=== PATIENT | male | born 1935 | race Caucasian/White ===

== ENCOUNTER 2016-09-30 10:10 | Day surgery (SDC) | payer MEDICARE ==
--- NOTE | 2016-09-23 16:11 | HP ---
HISTORY AND PHYSICAL: DATE OF ADMISSION: 09/30/2016. CHIEF COMPLAINT: Decreased vision. HISTORY OF PRESENT ILLNESS: This 81-year-old white male is scheduled with Dr. Adamson at the [facility] for a left cataract extraction under local anesthesia with monitored anesthesia care on September 30. The right eye will be done on 10/07/16. PAST MEDICAL HISTORY: The patient is under the care of Dr. Trevor Lewis. The patient has a history of asthma and hyperlipidemia. He has prostate cancer diagnosed in 2008, Sha score of 7. He had radiation therapy. No recurrence of disease. 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 In 2005, he had a normal 2 -D echocardiogram with an ejection fraction of 60%. Has vitamin B12 deficiency, but is not currently taking vitamin B12. PAST SURGICAL HISTORY: T and A in childhood. CURRENT MEDICATIONS: 1. Lipitor 10 mg daily. 2. Aspirin 81 mg daily. 3. Symbicort 160/4.5 two puffs b.i.d., which the patient uses on a p.r.n. basis. 4. Zyrtec 10 mg daily p.r.n. ALLERGIES: No known drug allergies. SOCIAL HISTORY: The patient lives with his in [facility] [place]. 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 Former smoker, quit in 1978, 12 pack year history. He does drink beer about 8 to 10 cans per week on average. REVIEW OF SYSTEMS: He does have some mild shortness of breath and occasional wheezing related to his asthma symptoms. He has occasional nocturia, intermittent left knee pain, and as previously mentioned has problems with vertigo labyrinthitis. He describes that if he is sitting and when he stands up , he starts to get a little dizzy and lightheaded, but once he is walking, he feels fine. He denies exertion related chest pain. PHYSICAL EXAMINATION GENERAL: An 81-year-old white male, who is alert, pleasant, and cooperative. VITAL SIGNS: Height 5 feet 9 inches, weight stable at 168. Blood pressure 114/ 60, pulse 60. HEENT: Eyes not examined. Ears normal. Mouth, tongue in the midline. Teeth in good repair. Pharynx is clear. NECK: Supple. Good range of motion. No adenopathy. Thyroid benign. LUNGS: Clear. Slight decreased breath sounds. No wheezing. HEART: Rhythm is regular. Apical pulse 60 beats per minute. EKG shows normal sinus rhythm within normal limits. ABDOMEN: Flat. Active bowel sounds. Abdomen is soft, nontender. No obvious masses or organomegaly. EXTREMITIES: The patient ambulates independently. No assisting aids. No edema , no cyanosis. No gross deformities. BACK: Normal curvature. No tenderness noted of the spine or CVA areas. SKIN: Good condition. No worrisome lesions noted. IMPRESSION: The patient is medically stable and cleared for his upcoming cataract surgery with Dr. Nikolas Adamson at the [facility]. SUZANNE ANTHONY NP CC: Dr. Trveor Lewis; Dr. Adamson in [facility]* [id number]/CPS #: [id number] MTDD
[~2016-09-30 10:10] MED LIST: Acetaminophen TAB* 325 MG PO PRN; Buffered Lidocaine 1% SYR 3ML* 3 ML/SYR SYRINGE INTRADERM ONE
[2016-09-30] MEDS ORDERED: Midazolam* 1 MG/ML 5 ML VIAL (5 MG) ONE (12:44)
[2016-09-30] MEDS ORDERED: KETAMINE HCL* 50 MG/ML 10 ML VIAL ONE (13:44)
[2016-09-30] MEDS ORDERED: Midazolam* 1 MG/ML 2 ML VIAL (2 MG) ONE (13:46)
[2016-09-30] MEDS ORDERED: Proparacaine 0.5% OPHTH.SOL* 15 ML BTL ONE (14:07)
[2016-09-30] MEDS ORDERED: Lidocaine 2% EPI 1:200000 MPF* 20 ML VIAL ONE (14:07)
[2016-09-30] MEDS ORDERED: Flurbiprofen 0.03% OPTH.SOL* 2.5 ML BTL ONE (14:07)
[2016-09-30] MEDS ORDERED: Povidone Iodine 5% OPTH* 30 ML BTL ONE (14:07)
[2016-09-30] MEDS ORDERED: Lidocaine 1% MPF* 2 ML VIAL ONE (14:07)
[2016-09-30] MEDS ORDERED: Neomycin/Polymy/Dex OPTH.SUSP* MAXITROL 0.1% 5 ML ONE (14:07)
[2016-09-30] MEDS ORDERED: Cyclopentolate 1% OPTH.SOL* 2 ML BTL ONE (14:07)
[2016-09-30] MEDS ORDERED: acetaZOLAMIDE TAB* 250 MG ONE (14:07)
[2016-09-30] MEDS ORDERED: Phenylephrine 2.5% OPTH.SOL* 2 ML BTL ONE (14:07)
[2016-09-30 14:18] VITALS: BP 163/81
--- NOTE | 2016-09-30 22:17 | OP ---
DATE OF OPERATION: 09/30/16 - [facility] DATE OF : 35 SURGEON: Nikolas Adamson M.D. PREOPERATIVE DIAGNOSIS: Cataract left eye. POSTOPERATIVE DIAGNOSIS: Cataract left eye. OPERATIVE PROCEDURE: Phacoemulsification chante eye with IOL. DESCRIPTION OF PROCEDURE: The patient was brought to the operating room after being given 1/2% Alcaine with epinephrine drops in the preoperative area. The eye was prepped and draped in the usual sterile fashion. Sterile drape and eyelid speculum were placed. Again, topical 1/2% Alcaine with epinephrine was given. A paracentesis incision was made at the 3 o'clock position with the No.75 blade. Clear cornea incision 2.2 x 2.2-mm was created at the 6 o'clock position starting at the anterior limbus using the 2.2-mm keratome. The anterior chamber was irrigated with 0.4 mL of 1% non-preservative intracameral lidocaine and filled with DisCoVisc. A capsulorrhexis was completed using the cystotome and the Utrata forceps. Hydrodissection was performed with balanced salt solution. The lens nucleus was removed with the Phacoemulsification handpiece without incident. Cortex was removed with the irrigation-aspiration handpiece. The capsular bag was re-inflated using DisCoVisc and an SN60WF 24.5 implant was inserted with the shooter. The pupil was 3 mm prior to capsulorrhexis. A Malyugin ring was used to dilate the pupil prior to capsulorrhexis and removed after the insertion of the lens. The irrigation- aspiration handpiece was used to remove all residual DisCoVisc. The eye was refilled with balanced salt solution and the wound checked and found to be watertight. Topical Maxitrol drops were given. Indication for complex cataract surgery: Iris abnormalities requiring pupil dilation device. [id number]/CPS #: [id number] [facility]
== END 2016-09-30 14:40 | disposition home or self-care (01) ==
LOC: OREAST 10:10
PROVIDERS: ATTEND Specialist
DX: H25.812 Combined forms of age-related cataract, left eye (principal); Q13.2 Other congenital malformations of iris; H40.033 Anatomical narrow angle, bilateral; H43.813 Vitreous degeneration, bilateral; H50.22 Vertical strabismus, left eye; J45.909 Unspecified asthma, uncomplicated; E78.5 Hyperlipidemia, unspecified; Z85.46 Personal history of malignant neoplasm of prostate; J44.9 Chronic obstructive pulmonary disease, unspecified; Z87.891 Personal history of nicotine dependence
CPT/HCPCS: A9270-GY; J2250; V2632

== ENCOUNTER 2016-10-07 07:20 | Day surgery (SDC) | payer MEDICARE ==
[2016-10-07] MEDS ORDERED: acetaZOLAMIDE TAB* 250 MG ONE (08:15)
[2016-10-07] MEDS ORDERED: Proparacaine 0.5% OPHTH.SOL* 15 ML BTL ONE (08:15)
[2016-10-07] MEDS ORDERED: Neomycin/Polymy/Dex OPTH.SUSP* MAXITROL 0.1% 5 ML ONE (08:15)
[2016-10-07] MEDS ORDERED: Flurbiprofen 0.03% OPTH.SOL* 2.5 ML BTL ONE (08:15)
[2016-10-07] MEDS ORDERED: Lidocaine 1% MPF* 2 ML VIAL ONE (08:15)
[2016-10-07] MEDS ORDERED: Phenylephrine 2.5% OPTH.SOL* 2 ML BTL ONE (08:15)
[2016-10-07] MEDS ORDERED: Lidocaine 2% EPI 1:200000 MPF* 20 ML VIAL ONE (08:15)
[2016-10-07] MEDS ORDERED: Cyclopentolate 1% OPTH.SOL* 2 ML BTL ONE (08:15)
[2016-10-07] MEDS ORDERED: Povidone Iodine 5% OPTH* 30 ML BTL ONE (08:15)
[2016-10-07] MEDS ORDERED: fentaNYL* 50 MCG/ML 2 ML VIAL (100 MCG VIAL) ONE ×2 (09:21→09:36)
[2016-10-07 10:11] VITALS: BP 140/66
--- NOTE | 2016-10-07 13:09 | OP ---
OPERATIVE NOTE: DATE OF OPERATION: 10/07/16 DATE OF : 35 SURGEON: Nikolas Adamson M.D. PREOPERATIVE DIAGNOSIS: Cataract, right eye. POSTOPERATIVE DIAGNOSIS: Cataract, right eye. OPERATIVE PROCEDURE: Phacoemulsification, right eye with IOL. PROCEDURE: The patient was brought to the operating room after being given 1/2% Alcaine with epinep hrine drops in the preoperative area. The eye was prepped and draped in the usual sterile fashion. Sterile drape and eyelid speculum were placed. Again, topical 1/2% Alcaine with epinephrine was gi marcel. A paracentesis incision was made at the 9 o'clock position with the No.75 blade. Clear cornea incision 2.2 x 2.2-mm was created at the 12 o'clock position starting at the anterior limbus using the 2.2-mm keratome. The anterior chamber was irrigated with 0.4 mL of 1% non-preservative intracam eral lidocaine and filled with DisCoVisc. A capsulorrhexis was completed using the cystotome and th e Utrata forceps. Hydrodissection was performed with balanced salt solution. The lens nucleus was r emoved with the Phacoemulsification handpiece without incident. Cortex was removed with the irrigat ion-aspiration handpiece. The capsular bag was re-inflated using DisCoVisc and an SN60WF 24-diopter implant was inserted with the shooter. Malyugin ring was used to dilate the pupil prior to capsulor rhexis because the pupil was only 3 mm. This was removed after insertion of the lens. Indication f or complex cataract surgery, pupillary abnormalities requiring Malyugin ring dilation. The irrigatio n-aspiration handpiece was used to remove all residual DisCoVisc. The eye was refilled with balance d salt solution and the wound checked and found to be watertight. Topical Maxitrol drops were given . [id number]/[facility] #: [id number]
== END 2016-10-07 10:18 | disposition home or self-care (01) ==
LOC: OREAST 07:20
PROVIDERS: ATTEND Specialist
DX: H25.811 Combined forms of age-related cataract, right eye (principal); H40.033 Anatomical narrow angle, bilateral; H43.813 Vitreous degeneration, bilateral; H50.22 Vertical strabismus, left eye; Z87.891 Personal history of nicotine dependence; J44.9 Chronic obstructive pulmonary disease, unspecified
CPT/HCPCS: A9270-GY; J3010; V2632

== ENCOUNTER 2017-01-27 15:35 | Emergency (ER) | payer MEDICARE ==
[2017-01-27 15:43] VITALS: BP 131/97
--- NOTE | 2017-01-27 16:36 | UC ---
Respiratory Complaint HPI - HPI Summary HPI Summary: Patient presents to the with CC of cough x 1 month. He notes to production with white phlegm. Not worse with day or night. Not worse with recumbent position. Patient has tried Symbicort without relief of symptoms. He states he has had this before, but has never lasted this long. He does not recall being on any antibiotics in the past, and usually these symptoms have spontaneously improved. He is a former smoker. Quit 40 years ago. Hx of prostate CA. Has not tried a cough medication. Generally healthy. He denies fevers, sweats or chills. Notable SOB after long distances. - History of Current Complaint Hx Obtained From: Patient Onset/Duration: Gradual Onset Timing: Constant Severity Initially: Moderate Severity Currently: Moderate Pain Intensity: 2 Pain Scale Used: 0-10 Numeric Character: Cough: Productive Aggravating Factors: Nothing Alleviating Factors: Nothing Associated Signs And Symptoms: Positive: Dyspnea - Risk Factors Pulmonary Embolism Risk Factors: Negative Cardiac Risk Factors: Negative Pseudomonas Risk Factors: Chronic Lung Disease Tuberculosis Risk Factors: Negative <Maegan Mast - Last Filed: 01/27/17 21:44> <Radha Hopkins - Last Filed: 01/27/17 21:47> - History of Current Complaint Chief Complaint: UCRespiratory Stated Complaint: RESP COMPLAINT Time Seen by Provider: 01/27/17 16:28 - Allergies/Home Medications Allergies/Adverse Reactions: Allergies Allergy/AdvReac Type Severity Reaction Status Date / Time No Known Allergies Allergy Verified 01/27/17 15:43 PMH/Surg Hx/FS Hx/Imm Hx Previously Healthy: Yes - Surgical History Surgical History: Yes Surgery Procedure, Year, and Place: T & A; lower back injections 1978 in [place] , 1998 REVERE PROSTATE SEED IMPLANT, APPENDECTOMY, - Family History Known Family History: Positive: None - Social History Occupation: Unemployed Lives: With Family Alcohol Use: Daily Alcohol Amount: beer Substance Use Type: None Smoking Status (MU): Former Smoker Amount Used/How Often: < 1 PPDX 25 YRS Have You Smoked in the Last Year: No When Did the Patient Quit Smoking/Using Tobacco: quit 1978 - Immunization History Most Recent Influenza Vaccination: 2014 Most Recent Tetanus Shot: UTD Most Recent Pneumonia Vaccination: 2004 <Maegan Mast - Last Filed: 01/27/17 21:44> Review of Systems Constitutional: Negative Skin: Negative ENT: Negative Respiratory: Shortness Of Breath, Cough Cardiovascular: Negative Genitourinary: Frequency Motor: Negative Neurovascular: Negative Neurological: Negative Psychological: Negative All Other Systems Reviewed And Are Negative: Yes <Maegan Mast - Last Filed: 01/27/17 21:44> Physical Exam Triage Information Reviewed: Yes Appearance: Well-Appearing, No Pain Distress, Well-Nourished Vital Signs: Initial Vital Signs Temp 98.9 F 01/27/17 15:38 Pulse 75 01/27/17 15:38 Resp 18 01/27/17 15:38 BP 131/97 01/27/17 15:38 Pulse Ox 98 01/27/17 15:38 Vital Signs Reviewed: Yes Eye Exam: Normal Eyes: Positive: Conjunctiva Clear ENT Exam: Normal Neck exam: Normal Neck: Positive: No Lymphadenopathy Respiratory Exam: Normal Respiratory: Positive: Chest non-tender, Lungs clear Cardiovascular Exam: Normal Cardiovascular: Positive: RRR Musculoskeletal Exam: Normal Musculoskeletal: Positive: Strength Intact Neurological Exam: Normal Neurological: Positive: Alert Psychological: Positive: Normal Response To Family, Age Appropriate Behavior Skin Exam: Normal <Maegan Mast - Last Filed: 01/27/17 21:44> Vital Signs: Initial Vital Signs Temp 98.9 F 01/27/17 15:38 Pulse 75 01/27/17 15:38 Resp 18 01/27/17 15:38 BP 131/97 01/27/17 15:38 Pulse Ox 98 01/27/17 15:38 <Radha Hopkins - Last Filed: 01/27/17 21:47> UC Diagnostic Evaluation - Laboratory O2 Sat by Pulse Oximetry: 98 <Maegan Mast - Last Filed: 01/27/17 21:44> Respiratory Course/Dx - Course Course Of Treatment: Patient evaluated for cough x 1 month. Notable SOB. Chest xray shows no acute findings. Discussed case with Dr. Hopkins. Will treat with doxycycline based on PE findings, tessalon and Mucinex. He is encouraged to follow up with Dr. Gillespie this week. - Differential Dx/Diagnosis Differential Diagnosis/HQI/PQRI: Bronchitis, Exacerbation Of COPD, Lower Resp Infection Provider Diagnoses: Acute Cough <Maegan Mast - Last Filed: 01/27/17 21:44> Discharge <Maegan Mast - Last Filed: 01/27/17 21:44> <Radha Hopkins - Last Filed: 01/27/17 21:47> - Discharge Plan Condition: Stable Disposition: HOME Prescriptions: Benzonatate CAP* [Tessalon CAP*] 100 mg PO TID #21 cap DOXYcycline CAP(*) [DOXYcycline 100MG CAP(*)] 100 mg PO BID #10 cap Guaifenesin/Pseudo 600/60(NF) [Mucinex D 600/60 (NF)] 1 tab PO Q12H #16 tab Patient Education Materials: Benzonatate (By mouth), Doxycycline (By mouth), Chronic Cough (ED) Referrals: Marito Gillespie MD [Primary Care Provider] - 1 Week (persistent cough. ) Additional Instructions: Drink plenty of fluids Humidifier in the home will help Follow up with Dr. Gillespie as soon as possible Attestations User Type: Provider - I was available for consult. This patient was seen by the [facility]. The patient was not presented to, seen by, or examined by me. -Ivan <Radha Hopkins - Last Filed: 01/27/17 21:47>
--- NOTE | 2017-01-27 17:04 | RAD ---
INDICATION: Chronic shortness of breath. 4 weeks productive cough. Former tobacco use. COMPARISON: August 25, 2015 TECHNIQUE: Dual energy PA and routine lateral views of the chest were obtained. REPORT: Elevated lung volumes and both diffuse mild prominence of the interstitial markings and patchy rarefaction of the mid to upper lung zone interstitial markings. No focal pulmonary lesion, compelling alveolar consolidation, pleural effusion, pneumothorax. The heart, pulmonary vasculature, and mediastinal contours are unremarkable. Unremarkable soft tissue contours and osseous structures for age. 3 small linear metallic foreign bodies are identified at the LEFT posterior thorax localizing in the lung parenchyma on August 13, 2014 CT. IMPRESSION: Stigmata of obstructive lung disease. No acute pulmonary or cardiac process evident.
== END 2017-01-27 17:29 | disposition home or self-care (01) ==
LOC: UCEAST 15:35
DX: R05 Cough (principal); Z87.891 Personal history of nicotine dependence
CPT/HCPCS: 71020; 99212; G0463

== ENCOUNTER 2017-05-04 10:12 | Inpatient (IN) | payer MEDICARE ==
[2017-05-04] MEDS ORDERED: NS 0.9% 1000 ML* 1,000 ML IV SCH (10:45)
--- NOTE | 2017-05-04 11:05 | RAD ---
HISTORY: Right-sided weakness, blurred vision COMPARISONS: August 29, 2014 TECHNIQUE: Multiple contiguous axial CT scans were obtained of the head without intravenous contrast. FINDINGS: HEMORRHAGE/INFARCT: There is no hemorrhage or acute infarct. MASSES/SHIFT: There is no mass or shift. EXTRA-AXIAL SPACES: There are no extra-axial fluid collections. SULCI AND VENTRICLES: The sulci and ventricles are normal in size and position for the patient's stated age. CEREBRUM: There is hypoattenuation of the periventricular and subcortical white matter. BRAINSTEM: There are no focal parenchymal abnormalities. CEREBELLUM: There are no focal parenchymal abnormalities. VESSELS: The vessels are grossly normal. PARANASAL SINUSES: The paranasal sinuses are clear. ORBITS: The orbits are unremarkable. BONES AND SOFT TISSUE: No bone or soft tissue abnormalities are noted. OTHER: None IMPRESSION: NO ACUTE INTRACRANIAL PATHOLOGY.
[2017-05-04 11:17] LABS: Comments Flag Yes; Hematocrit 38 % (42-52); Mean Corpuscular HGB Conc 37 g/dl (31-36); Mean Corpuscular Hemoglobin 33 pg (27-31); Mean Corpuscular Volume 90 fL (80-94); Mean Platelet Volume 7 um3 (7.4-10.4); Red Blood Count 4.27 10^6/ul (4.0-5.4); Red Cell Distribution Width 15 % (10.5-15); White Blood Count 7.3 10^3/ul (3.5-10.8)
--- NOTE | 2017-05-04 11:24 | RAD ---
INDICATION: Right-sided weakness COMPARISON: January 27, 2017 TECHNIQUE: An AP portable view obtained at 1110 hours is submitted. FINDINGS: Bones/Soft Tissues: There are no acute bony findings. Cardiomediastinal: The cardiomediastinal silhouette is normal. Lungs: There are no infiltrates. There is hyperinflation. There is nipple shadow on the right Pleura: There are no pleural effusions. Other: None IMPRESSION: NO ACTIVE DISEASE.
[2017-05-04 11:35] LABS: ALT 13 U/L (7-52); AST 15 U/L (13-39); Albumin 4.1 g/dL (3.2-5.2); Alkaline Phosphatase 64 U/L (34-104); Ammonia 35 mol/L (16-53); Anion Gap 6 mmol/L (2-11); BUN/Creatinine Ratio 17.3 (8-20); Blood Urea Nitrogen 32 mg/dL (6-24); C Reactive Protein < 1.00 mg/L (< 5.00); CO2 Carbon Dioxide 27 mmol/L (22-32); Calcium 9.4 mg/dL (8.6-10.3); Chloride 108 mmol/L (101-111); Creatine Kinase 41 U/L (10-223); EGFR African American 45.3 (>60); EGFR Non-African American 35.3 (>60); Globulin 2.4 g/dL (2-4); Glucose 99 mg/dL (70-100); Lipase 12 U/L (11.0-82.0); Magnesium 2.2 mg/dL (1.9-2.7); Potassium 4.7 mmol/L (3.5-5.0); Sodium 141 mmol/L (133-145); Total Protein 6.5 g/dL (6.4-8.9)
[2017-05-04 11:37] LABS: Troponin I 0.02 ng/mL (<0.04)
[2017-05-04] MEDS ORDERED: Iodixanol* (CONTRAST) 320 MG/ML 100 ML SDV IV ONE (11:38)
[2017-05-04 11:39] LABS: B Type Natriuretic Peptide 76 pg/mL
[2017-05-04] MEDS ORDERED: Aspirin TAB* 325 MG PO ONE (11:51)
[2017-05-04 12:13] LABS: TSH (Thyroid Stimulating Horm) 4.75 mcIU/mL (0.34-5.60)
--- NOTE | 2017-05-04 12:44 | RAD ---
HISTORY: Right face and arm weakness, slurred speech COMPARISONS: Head CT dated May 04, 2017, carotid ultrasound dated August 29, 2014 TECHNIQUE: Multiple contiguous axial CT scans were obtained of the head and neck After the administration of nonionic intravenous contrast timed to the systemic arterial phase of contrast enhancement. Coronal and sagittal multiplanar reformations are submitted for review. Multiple 3-D maximum intensity projection reconstructions are also submitted for review. FINDINGS: CTA NECK: AORTIC ARCH: There is a normal three-vessel branching pattern of the aortic arch. There is no ostial or proximal stenosis of the cephalic great vessels. RIGHT VERTEBRAL ARTERY: The right vertebral artery is patent along its course, without stenosis. LEFT VERTEBRAL ARTERY: There is atherosclerotic plaque at origin of left subclavian artery with diffuse hypoenhancement of the left vertebral artery. DOMINANCE: The right vertebral artery is dominant. RIGHT COMMON CAROTID ARTERY: The right common carotid artery is patent. The right carotid bifurcation occurs at C4-C5 RIGHT INTERNAL CAROTID ARTERY: There is atheromatous disease of the right carotid bifurcation, without right internal carotid artery stenosis by NASCET criteria. RIGHT EXTERNAL CAROTID ARTERY: The right external carotid artery is unremarkable. LEFT COMMON CAROTID ARTERY: The left common carotid artery is patent. The left carotid bifurcation occurs at C4-C5 LEFT INTERNAL CAROTID ARTERY: There is atheromatous plaque of the left carotid bifurcation, with approximately 30% short segment left internal carotid artery stenosis by NASCET criteria. LEFT EXTERNAL CAROTID ARTERY: The left external carotid artery is unremarkable. VENOUS CIRCULATION: The venous system is unremarkable. SALIVARY GLANDS: The parotid glands, submandibular glands, sublingual glands are normal. NASAL CAVITY/NASOPHARYNX: The nasal cavity and nasopharynx are normal. ORAL CAVITY/OROPHARYNX: The oral cavity is obscured by streak artifact from dental amalgam. The visualized oral cavity and oropharynx are unremarkable. LARYNGEAL APPARATUS/HYPOPHARYNX: The laryngeal apparatus and hypopharynx are normal. UPPER AIRWAY/UPPER ESOPHAGUS: The visualized upper airway and esophagus are normal. LUNG APICES: The lung apices are clear. THYROID GLAND: The thyroid gland is normal. LYMPH NODES: There is no lymphadenopathy by size criteria. BONES AND SOFT TISSUES: Degenerative changes are noted along the spine. CTA HEAD: INTRACRANIAL CIRCULATION: As noted above, there is hypoenhancement of the distal left vertebral artery. Elsewhere, there is no aneurysm, vascular malformation, occlusion, or stenosis of the visualized intravenous circulation. The anterior communicating artery complex is clear. Bilateral posterior communicating arteries are identified. VENOUS CIRCULATION: The venous system is unremarkable. PERFUSION: There is no obvious parenchymal perfusion deficit. HEMORRHAGE/INFARCT: There is no hemorrhage or acute infarct. MASSES/SHIFT: There is no mass or shift. EXTRA-AXIAL SPACES: There are no extra-axial fluid collections. SULCI AND VENTRICLES: The sulci and ventricles are normal in size and position for the patient's stated age. CEREBRUM: There is hypoattenuation of the periventricular and subcortical white matter. BRAINSTEM: There are no focal parenchymal abnormalities. CEREBELLUM: There are no focal parenchymal abnormalities. PARANASAL SINUSES: The paranasal sinuses are clear. ORBITS: The orbits are unremarkable. BONES AND SOFT TISSUE: No bone or soft tissue abnormalities are noted. OTHER: There is no abnormal enhancement. IMPRESSION: 1. ATHEROMATOUS DISEASE. 2. APPROXIMATELY 30% LEFT INTERNAL CAROTID ARTERY STENOSIS BY NASCET CRITERIA. 3. THERE IS DIFFUSE HYPOENHANCEMENT WITH MULTIFOCAL NARROWING OF THE LEFT VERTEBRAL ARTERY WITH ATHEROMATOUS PLAQUE OF THE PROXIMAL LEFT SUBCLAVIAN ARTERY. THE APPEARANCE IS SUGGESTIVE OF MULTIFOCAL STENOSIS OF THE LEFT VERTEBRAL ARTERY VERSUS HIGH-GRADE OSTIAL STENOSIS OF THE LEFT VERTEBRAL ARTERY. 4. ELSEWHERE, THERE IS NO ANEURYSM, VASCULAR DEFINITION, OCCLUSION, OR STENOSIS OF THE INTRACRANIAL CIRCULATION. CPT II Codes: 3100F
[2017-05-04 14:12] LABS: Urine Bilirubin Negative (Negative); Urine Glucose Negative (Negative); Urine Nitrite Negative (Negative)
[2017-05-04] MEDS ORDERED: Clopidogrel TAB* 75 MG PO ONE (15:23)
[2017-05-04] MEDS: NS 0.9% 1000 ML* 1,000 ML IV SCH (17:06)
[2017-05-04] MEDS: Atorvastatin* 10 MG TAB PO SCH (17:06)
--- NOTE | 2017-05-04 18:36 | ED ---
Neto Middleton Benjamin, scribed for Dov Bundy MD on 05/04/17 at 1032 . Neurological HPI - HPI Summary HPI Summary: 81yo male c/o waking this morning with trouble walking and altered depth perception. Pt denies any weakness or numbness. Pt states that he notices a slight slurred speech. Pt feels less sensation on the right face and states his RUE feels slightly off. - History of Current Complaint Chief Complaint: EDNeurologicalDeficit Stated Complaint: POSSIBLE STROKE Hx Obtained From: Patient, Family/Insurance Premium Auditor - Onset/Duration: Sudden Onset, Still Present Timing: Constant Onset Severity: Mild Current Severity: Mild Neurological Deficit Location: Facial - right, RUE Pain Intensity: 0 Character: Paresthesia - RUE, Impaired Speech, Visual Changes Aggravating: Nothing Alleviating: Nothing - Allergy/Home Medications Allergies/Adverse Reactions: Allergies Allergy/AdvReac Type Severity Reaction Status Date / Time No Known Allergies Allergy Verified 05/04/17 10:15 Home Medications: Home Medications Aspirin EC Low Dose* [Ecotrin EC Low Dose 81 MG*] 81 mg PO DAILY 05/04/17 [ History Confirmed 05/04/17] PMH/Surg Hx/FS Hx/Imm Hx Endocrine/Hematology History: Denies: Hx Diabetes, Hx Thyroid Disease Cardiovascular History: Reports: Hx Hypercholesterolemia Denies: Hx Hypertension, Hx Pacemaker/ICD Respiratory History: Reports: Hx Asthma, Hx Chronic Bronchitis, Hx Chronic Obstructive Pulmonary Disease (COPD) - MAYBE ? GI History: Denies: Hx Ulcer Musculoskeletal History: Reports: Hx Arthritis - LEFT KNEE, Other Musculoskeletal History - PAIN INJECTIONS IN 1978-NO PROBLEMS SINCE Sensory History: Reports: Hx Cataracts - BILATERAL, Hx Contacts or Glasses - GLASSES Denies: Hx Hearing Aid Opthamlomology History: Reports: Hx Cataracts - BILATERAL, Hx Contacts or Glasses - GLASSES Neurological History: Reports: Hx Headaches - A CHILD, Other Neuro Impairments/Disorders - HX OF VERTIGO-2014 Psychiatric History: Denies: Hx Panic Disorder - Cancer History Cancer Type, Location and Year: Prostate Hx Radiation Therapy: Yes - Surgical History Surgery Procedure, Year, and Place: T & A; lower back injections 1978 in [place] , 1998 [employer] PROSTATE SEED IMPLANT, APPENDECTOMY, Hx Anesthesia Reactions: No Infectious Disease History: No Infectious Disease History: Reports: Hx Shingles Denies: Hx Clostridium Difficile, Hx Hepatitis, Hx Human Immunodeficiency Virus (HIV), Hx of Known/Suspected MRSA, Hx Tuberculosis, Hx Known/Suspected VRE , Hx Known/Suspected VRSA, History Other Infectious Disease, Traveled Outside the [place] in Last 30 Days - Family History Known Family History: Negative: Renal Disease, Respiratory Disease - Social History Alcohol Use: Daily Alcohol Amount: beer Substance Use Type: Reports: None Smoking Status (MU): Former Smoker Amount Used/How Often: < 1 PPDX 25 YRS Have You Smoked in the Last Year: No Review of Systems Constitutional: Negative ENT: Negative Cardiovascular: Negative Respiratory: Negative Gastrointestinal: Negative Musculoskeletal: Negative Skin: Negative Neurological: Other - altered depth perception; trouble walking Positive: Paresthesia - RUE feels "off", Slurred Speech. Negative: Weakness, Numbness Psychological: Normal All Other Systems Reviewed And Are Negative: Yes Physical Exam - Summary Physical Exam Summary: General: well-appearing, no pain distress Skin: warm, color reflects adequate perfusion, dry Head: normal Eyes: EOMI, MOOKIE ENT: normal Neck: supple, nontender Respiratory: CTA, breath sounds present Cardiovascular: RRR Abdomen: soft, nontender Bowel: present Musculoskeletal: normal, strength/ROM intact Neurological: normal, sensory/motor intact, A&O x3. RUE drift. Right facial droop. Psychological: affect/mood appropriate Triage Information Reviewed: Yes Vital Signs On Initial Exam: Initial Vitals Temp Pulse Resp BP Pulse Ox 97.3 F 71 16 144/72 100 05/04/17 10:15 05/04/17 10:15 05/04/17 10:15 05/04/17 10:15 05/04/17 10:15 Vital Signs Reviewed: Yes Diagnostics - Vital Signs Vital Signs Temp Pulse Resp BP Pulse Ox 05/04/17 10:15 97.3 F 71 16 144/72 100 - Laboratory Lab Results: Lab Results 05/04/17 05/04/17 05/04/17 Range/Units 11:05 11:05 11:05 WBC (3.5-10.8) 10^3/ul RBC (4.0-5.4) 10^6/ul Hgb (14.0-18.0) g/dl Hct (42-52) % MCV (80-94) fL MCH (27-31) pg MCHC (31-36) g/dl RDW (10.5-15) % Plt Count (150-450) 10^3/ul MPV (7.4-10.4) um3 Neut % (Auto) (38-83) % Lymph % (Auto) (25-47) % Fleming % (Auto) (1-9) % Eos % (Auto) (0-6) % Baso % (Auto) (0-2) % Absolute Neuts (auto) (1.5-7.7) 10^3/ul Absolute Lymphs (auto) (1.0-4.8) 10^3/ul Absolute Monos (auto) (0-0.8) 10^3/ul Absolute Eos (auto) (0-0.6) 10^3/ul Absolute Basos (auto) (0-0.2) 10^3/ul Absolute Nucleated RBC 10^3/ul Nucleated RBC % INR (Anticoag Therapy) 0.90 (0.77-1.02) APTT 29.8 (26.0-36.3) seconds Sodium 141 (133-145) mmol/L Potassium 4.7 (3.5-5.0) mmol/L Chloride 108 (101-111) mmol/L Carbon Dioxide 27 (22-32) mmol/L Anion Gap 6 (2-11) mmol/L BUN 32 H (6-24) mg/dL Creatinine 1.85 H (0.67-1.17) mg/dL Est GFR ( Amer) 45.3 (>60) Est GFR (Non-Af Amer) 35.3 (>60) BUN/Creatinine Ratio 17.3 (8-20) Glucose 99 (70-100) mg/dL Lactic Acid (0.5-2.0) mmol/L Calcium 9.4 (8.6-10.3) mg/dL Magnesium 2.2 (1.9-2.7) mg/dL Total Bilirubin 0.80 (0.2-1.0) mg/dL AST 15 (13-39) U/L ALT 13 (7-52) U/L Alkaline Phosphatase 64 (34-104) U/L Ammonia 35 (16-53) mol/L Total Creatine Kinase 41 (10-223) U/L CK-MB (CK-2) 1.8 (0.6-6.3) ng/mL Troponin I 0.02 (<0.04) ng/mL C-Reactive Protein < 1.00 (< 5.00) mg/L B-Natriuretic Peptide 76 ( - 100) pg/mL Total Protein 6.5 (6.4-8.9) g/dL Albumin 4.1 (3.2-5.2) g/dL Globulin 2.4 (2-4) g/dL Albumin/Globulin Ratio 1.7 (1-3) Lipase 12 (11.0-82.0) U/L TSH 4.75 (0.34-5.60) mcIU/mL Urine Color Urine Appearance Urine pH (5-9) Ur Specific [place] (1.010-1.030) Urine Protein (Negative) Urine Ketones (Negative) Urine Blood (Negative) Urine Nitrate (Negative) Urine Bilirubin (Negative) Urine Urobilinogen (Negative) Ur Leukocyte Esterase (Negative) Urine Glucose (Negative) 05/04/17 05/04/17 05/04/17 Range/Units 11:05 11:05 13:49 WBC 7.3 (3.5-10.8) 10^3/ul RBC 4.27 (4.0-5.4) 10^6/ul Hgb 14.0 (14.0-18.0) g/dl Hct 38 L (42-52) % MCV 90 (80-94) fL MCH 33 H (27-31) pg MCHC 37 H (31-36) g/dl RDW 15 (10.5-15) % Plt Count 183 (150-450) 10^3/ul MPV 7 L (7.4-10.4) um3 Neut % (Auto) 60.9 (38-83) % Lymph % (Auto) 14.8 L (25-47) % Fleming % (Auto) 8.8 (1-9) % Eos % (Auto) 14.6 H (0-6) % Baso % (Auto) 0.9 (0-2) % Absolute Neuts (auto) 4.5 (1.5-7.7) 10^3/ul Absolute Lymphs (auto) 1.1 (1.0-4.8) 10^3/ul Absolute Monos (auto) 0.6 (0-0.8) 10^3/ul Absolute Eos (auto) 1.1 H (0-0.6) 10^3/ul Absolute Basos (auto) 0.1 (0-0.2) 10^3/ul Absolute Nucleated RBC 0 10^3/ul Nucleated RBC % 0 INR (Anticoag Therapy) (0.77-1.02) APTT (26.0-36.3) seconds Sodium (133-145) mmol/L Potassium (3.5-5.0) mmol/L Chloride (101-111) mmol/L Carbon Dioxide (22-32) mmol/L Anion Gap (2-11) mmol/L BUN (6-24) mg/dL Creatinine (0.67-1.17) mg/dL Est GFR ( Amer) (>60) Est GFR (Non-Af Amer) (>60) BUN/Creatinine Ratio (8-20) Glucose (70-100) mg/dL Lactic Acid 0.6 (0.5-2.0) mmol/L Calcium (8.6-10.3) mg/dL Magnesium (1.9-2.7) mg/dL Total Bilirubin (0.2-1.0) mg/dL AST (13-39) U/L ALT (7-52) U/L Alkaline Phosphatase (34-104) U/L Ammonia (16-53) mol/L Total Creatine Kinase (10-223) U/L CK-MB (CK-2) (0.6-6.3) ng/mL Troponin I (<0.04) ng/mL C-Reactive Protein (< 5.00) mg/L B-Natriuretic Peptide ( - 100) pg/mL Total Protein (6.4-8.9) g/dL Albumin (3.2-5.2) g/dL Globulin (2-4) g/dL Albumin/Globulin Ratio (1-3) Lipase (11.0-82.0) U/L TSH (0.34-5.60) mcIU/mL Urine Color Yellow Urine Appearance Clear Urine pH 6.0 (5-9) Ur Specific [place] 1.031 H (1.010-1.030) Urine Protein Negative (Negative) Urine Ketones Negative (Negative) Urine Blood Negative (Negative) Urine Nitrate Negative (Negative) Urine Bilirubin Negative (Negative) Urine Urobilinogen Negative (Negative) Ur Leukocyte Esterase Negative (Negative) Urine Glucose Negative (Negative) Result Diagrams: 05/04/17 11:05 05/04/17 11:05 Lab Statement: Any lab studies that have been ordered have been reviewed, and results considered in the medical decision making process. - Radiology CXR Xray Interpretation: No Acute Changes Radiology Interpretation Completed By: Radiologist - ED physician has reviewed this radiology report and agrees. - CT Brain CT CT Interpretation: No Acute Changes CT Interpretation Completed By: Radiologist - ED physician has reviewed this radiology report and agrees. CTA Head CT Interpretation: Positive (See Comments) - IMPRESSION: 1. ATHEROMATOUS DISEASE. 2. APPROXIMATELY 30% LEFT INTERNAL CAROTID ARTERY STENOSIS BY NASCET CRITERIA. 3. THERE IS DIFFUSE HYPOENHANCEMENT WITH MULTIFOCAL NARROWING OF THE LEFT VERTEBRAL ARTERY WITH ATHEROMATOUS PLAQUE OF THE PROXIMAL LEFT SUBCLAVIAN ARTERY. THE APPEARANCE IS SUGGESTIVE OF MULTIFOCAL STENOSIS OF THE LEFT VERTEBRAL ARTERY VERSUS HIGH-GRADE OSTIAL STENOSIS OF THE LEFT VERTEBRAL ARTERY. 4. ELSEWHERE, THERE IS NO ANEURYSM, VASCULAR DEFINITION, OCCLUSION, OR STENOSIS OF THE INTRACRANIAL CIRCULATION. CT Interpretation Completed By: Radiologist - ED physician has reviewed this radiology report and agrees. - EKG 1134. Cardiac Rate: Bradycardia EKG Rhythm: Sinus Bradycardia - 49bpm ST Segment: Normal NIH Scale - NIH Scale Level of Consciousness: Alert/Keenly Responsive Ask Patient the Month and His/Her Age: Both Correct Ask Pt to Open/Close Eyes and Radio Communications Mechanician/Release Non-Paretic Hand: Both Correctly Best Gaze (Only Horizontal Eye Movement): Normal Visual Field Testing: Partial Hemianopia - RT FIELD DEFICIT Facial Paresis-Pt to Smile & Close Eyes or Grimace Symmetry: Minor Paralysis Motor Function - Right Arm: Drifts LT 10 seconds Motor Function - Left Arm: No Drift-Holds 10 Seconds Motor Function - Right Leg: No Drift-Holds 10 Seconds Motor Function - Left Leg: No Drift-Holds 10 Seconds Limb Ataxia-Must be out of Proportion to Weakness Present: Absent Sensory (Use Pinprick to Test Arms/Legs/Trunk/Face): Normal Best Language (Describe Picture, Name Items): No Aphasia Dysarthria (Read Several Words): Normal Extinction and Inattention: No Abnormality Total Score: 3 Re-Evaluation - Re-Evaluation First Eval Re-Evaluation Time: 12:26 Comment: No visual impairment, normal eyes. Negative finger to nose test. Course/Dx - Course Course Of Treatment: BP noted and advised to follow up with PCP. Allergies noted. Medications reviewed. Spoke to Dr. Lopez (Neurology) at 1113 hour. ADMIT HOSPITALIST. CRITICAL CARE TIME LESS THAN 30 MINUTES. - Diagnoses Provider Diagnoses: CVA (cerebral vascular accident) Discharge - Discharge Plan Condition: Stable Disposition: ADMITTED TO [facility] documentation as recorded by the Neto roman Benjamin accurately reflects the service I personally performed and the decisions made by me, Dov Bundy MD.
--- NOTE | 2017-05-04 20:00 | HP ---
CC: Dr. Gillespie; Dr. Ana Laura Lopez * HISTORY AND PHYSICAL: DATE OF ADMISSION: 05/04/17 TIME OF EVALUATION: 2:30 p.m. PRIMARY CARE PROVIDER: Dr. Gillespie. CONSULTING NEUROLOGIST: Dr. Ana Laura Lopez CHIEF COMPLAINT: "My right side was weak." HISTORY OF PRESENT ILLNESS: Mr. Perez is an 81-year-old male with a past medical history of COPD, hyperlipidemia, prostate CA, peripheral neuropathy who presents to the emergency room with complaints of visual changes and right- sided weakness. The patient states that he woke up around 4:30 in the morning to go to the bathroom. He walked fine and when he was done, he was trying to reach the toilet paper and he noticed that he cannot reach it, he could see it but every time he tried to reach it, he would touch a different area. He thought he was just tired and went back to bed. Around 8:30, he woke up again and he noticed the same thing that he was trying to reach for things on the side table and he would miscalculate and reach over or under or to the side. He went to talk to his and she noticed that he had right facial droop and his speech was slurred and they decided to come to the emergency room. He denies nausea, vomiting, headache, dizziness, or any other symptoms and he states that he was in his usual state of health when he went to bed last night. In the emergency room as per the emergency room doctor examination, the patient also had some right arm weakness and right facial numbness. At the time of my interview, the patient's states that his speech is back to normal, that his face is back to normal and she did not notice any other changes. He denies a prior episode like this. PAST MEDICAL HISTORY: 1. Hyperlipidemia. 2. COPD. 3. Prostate CA status post radiation therapy. 4. Vertigo. 5. Peripheral neuropathy. 6. History of left arm melanoma. 7. PFO diagnosed on echocardiogram done in August 2014. MEDICATION LIST: 1. Symbicort 160/4.5 one to two puffs inhaled b.i.d. as needed for shortness of breath. 2. Atorvastatin 10 mg p.o. at bedtime. 3. Aspirin 81 mg p.o. daily. ALLERGIES: No known drug allergy. FAMILY HISTORY: Father had a history of coronary artery disease. Mother had a history of cancer, but he does not remember the primary. 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 He used to be a smoker, 12-pack year history, quit in 1978. He occasionally drinks a beer. Surrogate decision maker is his , Mary Perez, phone number is [phone]. REVIEW OF SYSTEMS: A 14-point review of systems was performed, and all the pertinent negatives and positive findings are in the HPI. PHYSICAL EXAMINATION GENERAL: The patient is a pleasant, elderly male, sitting up in ED stretcher, in no acute distress. VITAL SIGNS: Temperature 97.3, heart rate is 61, respiratory rate is 16, oxygen saturation 97% on room air, blood pressure is 176/67. HEENT: Pupils are equal. Extraocular movements are intact. Moist mucous membranes. NECK: There is no JVD. No carotid bruit. CHEST: Breath sounds are present bilaterally with no added sounds. CVS: Normal S1, S2. Regular rate and rhythm. ABDOMEN: Soft. Bowel sounds are present. EXTREMITIES: No edema. NEURO: The patient is alert, awake, oriented x3. Power is 5/5 in all 4 limbs. There is a normal flatwork ironer of the right hand now, although it was described as weaker earlier. Face is symmetric. Speech is clear. [id number]-[id number] and heel- to-tobin are normal. The patient has visual field cut loss on the right and he had difficulty reading his CAT scan recommendations as he would skip the right side of the paragraph. LABORATORY AND IMAGING DATA: The patient had a CBC that showed WBC of 7.3, hemoglobin 14, hematocrit 38, platelets 183, with 60% neutrophils. INR is 0.9. Chemistry showed a sodium of 141, potassium 4.7, chloride 108, bicarb 27, BUN 32, creatinine 1.85, glucose 99. Lactic acid 0.6. Calcium 9.4, magnesium 2.2. LFTs are normal. TSH is 4.7. Urinalysis is normal. Chest x-ray showed no active disease. CT of the brain showed no acute intracranial pathology. CTA of the head showed 30% left internal carotid artery stenosis, diffuse hyperenhancement with multifocal narrowing of the left vertebral artery with atheromatous plaque of the proximal left subclavian artery. The appearance is suggestive of multifocal stenosis of the left vertebral artery versus high-grade ostial stenosis of the left vertebral artery. Elsewhere there is no aneurysm or vascular definition occlusion or stenosis of the intracranial circulation. EKG showed sinus bradycardia 49 beats per minute with no ST-T changes. No significant changes when compared to his prior EKG in August 2014. ASSESSMENT AND PLAN: Mr. Perez is an 81-year-old male with a past medical history of hyperlipidemia, prostate cancer, peripheral neuropathy, melanoma of his left arm, vertigo, vitamin B12 deficiency who presented to the emergency room with visual changes and right-sided weakness found to have a probable cerebrovascular accident. 1. Cerebrovascular accident: I believe the patient probably had a left posterior circulation cerebrovascular accident with his right visual field loss and report of right hemiparesis. At this point, his symptoms are already improving and it is unclear when his symptoms started as he went to bed feeling well and woke up with deficits around 4:30 in the morning. The patient would be admitted as an observation to the telemetry floor. We are going to check an MRI of the brain and an echocardiogram and he will be seen in consultation by Neurology. We are going to check a lipid profile, hemoglobin A1c and for now, he is going to be continued on his Lipitor. I discussed with the neurologist on-call, Dr. Lopez and the recommendation for now is to continue his low-dose aspirin and to add Plavix. Of note, the patient had an echocardiogram done in August 2014 that showed a patent foramen ovale. He will be monitored with neuro checks. We are going to monitor his blood pressure closely to make sure he has enough pressure for perfusion for cerebral perfusion. PT/OT consultations were requested. 2. DVT prophylaxis: The patient has a score of 5 on DVT Prophylaxis Risk Assessment Guide and he will be started on subcutaneous heparin and he shall have SCDs while in bed. 3. Code status is full. TIME SPENT: Approximately 70 minutes was spent with the patient and family interview, medical records review, physical examination to complete this admission, more than half of this time was spent [id number] with the patient in coordination of care. [id number]/[facility] #: [id number] VASYL
--- NOTE | 2017-05-04 20:12 | RAD ---
INDICATION: Right hemianopsia, right hemiparesis. COMPARISON: Comparison is made with a prior CT of the brain from May 04, 2017. TECHNIQUE: Sagittal T1, axial T1, T2, susceptibility, FLAIR and diffusion weighted images were obtained. FINDINGS: The ventricles, cisterns and sulci are prominent consistent with diffuse atrophy. There are small focal areas of increased signal intensity on T2-weighted images present within the subcortical and periventricular white matter most consistent with mild chronic small vessel ischemic changes. There are multiple focal areas of restricted diffusion present within the cortical and subcortical white matter in the posterior left parietal and occipital lobes most consistent with acute to subacute infarcts. There is no evidence for hemorrhage. The visualized portion of the paranasal sinuses and mastoid air cells appear clear. IMPRESSION: MULTIPLE SMALL ACUTE TO SUBACUTE INFARCTS IN THE POSTERIOR LEFT PARIETAL AND OCCIPITAL LOBES.
[2017-05-04] MEDS: Mometasone/Formoter 200/5 MDI INH SCH (20:29)
[2017-05-04] MEDS: Heparin VIAL(*) 5000 UNITS/ML VIAL (FIVE THOUSAND) SUBCUT SCH (22:03)
--- NOTE | 2017-05-05 00:20 | CONS ---
NEUROLOGY CONSULTATION: DATE OF CONSULT: 05/04/17 LOCATION: The patient is an inpatient. REASON FOR CONSULT: Possible stroke. REQUESTING PROVIDER: Dr. Dov Bunyd. HISTORY OF PRESENT ILLNESS: Ronnell Perez is an 81-year-old man with a history of hyperlipidemia, who presented to the emergency room this morning with possible ataxia versus visual field defect. The patient reports that when he woke at 4:30 this morning to use the bathroom and he went to reach for the toilet paper roll, he was having a difficult time gauging where it was in space and kept missing it. He figured that it was just because he was tired, so he went back to bed and when he got back up at 8:30, he had similar difficulty with gauging where the toilet paper was. In addition, his thought that the right side of his face looked weak and that his speech sounded slurred. She finally convinced him to come to the emergency room. His last time known well was the previous night before going to bed and so he was not deemed a candidate for tPA. In addition, overall his deficits were relatively mild. He has undergone CT of the brain as well as CTA of the head and neck. The CTA of the head and neck were notable for high-grade stenosis versus occlusion of the left vertebral artery. Neurology consultation is requested for stroke workup. PAST MEDICAL HISTORY: 1. Hyperlipidemia. 2. Seasonal allergies. 3. Tonsillectomy and adenoidectomy. 4. Appendectomy. 5. Prostate cancer. HOME MEDICATIONS: 1. Symbicort 160/4.5 one to two puffs b.i.d. p.r.n. 2. Atorvastatin 10 mg q.p.m. 3. Aspirin 81 mg daily. FAMILY HISTORY: His mother of cancer when she was 40. His father had heart disease, he believes, but he was not entirely sure. SOCIAL HISTORY: He drinks alcohol and says that on some nights, he will have 4 to 5 light beers, while other days, he will have none. He also occasionally drinks a glass of wine. He is a former smoker. He is , with 4 children. REVIEW OF SYSTEMS: Negative otherwise as per the HPI. PHYSICAL EXAM: Vital Signs: Temperature 98.2, blood pressure 144/78, heart rate 78, oxygen saturation 97% on room air. On general examination, he is a pleasant man, in no acute distress. His heart is regular. His lungs are clear. His skin is intact. There is no lower extremity edema. On neurologic examination, he was fully awake, alert, and oriented. His speech seemed to be mildly dysarthric at times, but at other times seemed clear. There was no apparent aphasia. On cranial nerve exam, his pupils were equal, round, and reactive from 2 to 3 mm bilaterally. Versions are full without nystagmus. There was no clear peripheral field cut when testing on confrontation and with finger counting, but when he looked directly at the examiner's face with both eyes or with either the left or the right eye, he reported difficulty with seeing off to the right and in particular, my left eye was blurry. His face at rest seems symmetric, but when he smiles, there is decreased activation on the right. Facial sensation is intact bilaterally. Hearing is intact to voice. The palate elevates symmetrically and the tongue is midline. Shoulder shrug is full and symmetric. On motor examination, there is no clear weakness on confrontational testing, but he has mild pronator drift on the right. Finger taps are clumsy on the right. Sensation is intact to temperature in the upper and lower extremities, but there is reduced vibratory sensation in the great toes bilaterally. Rovuaz-[id number] and heel- to-tobin are intact without ataxia. His reflexes are 2+ in the arms and at the knees with absent ankle jerks. The toes are downgoing. I did not ambulate him at this time. DIAGNOSTIC STUDIES/LAB DATA: CBC was notable for a low hematocrit of 38, otherwise hemoglobin, white blood cell count, and platelets are normal. His MCH and MCHC are elevated. His creatinine is elevated at 1.85, BUN is 32, and the remainder of his CMP is unremarkable. His TSH is 4.75. Urinalysis was negative. Coagulation studies were normal. Brain CT was obtained and personally reviewed and shows no evidence of an acute process, but does show some evidence of small vessel ischemic changes. As mentioned in the HPI, his head and neck CTA was notable for atherosclerotic plaque at the origin of the left subclavian artery with diffuse hypoenhancement of the left vertebral artery. In addition, there is some atheromatous plaque of both carotid arteries with no significant stenosis. There is no clear intracranial occlusion aside from that noted in the vertebral artery. IMPRESSION AND PLAN: Ronnell Perez is an 81-year-old man with a history of hyperlipidemia, who presents with probable partial right visual field defect as well as some mild right hemiparesis, which he woke up with this morning. Given the last known normal, he was not a candidate for tPA. I suspect he has had a small posterior circulation stroke. There is no endovascular option given the stenosis/occlusion noted in the vertebral artery. He has been admitted for stroke workup and will undergo MRI of the brain to better define the territory of infarction. I recommended starting Plavix 75 mg at this point along with aspirin. We will check fasting lipid profile as well as hemoglobin A1c, echocardiogram with bubble study, and he will be monitored on telemetry. Blood pressure goals include MAPs of 80 to 110. Thank you for this consultation. [id number]/[facility] #: [id number] VASYL
[2017-05-05] MEDS: NS 0.9% 1000 ML* 1,000 ML IV SCH ×2 (03:41→13:43)
[2017-05-05] MEDS: Heparin VIAL(*) 5000 UNITS/ML VIAL (FIVE THOUSAND) SUBCUT SCH ×3 (05:45→21:23)
[2017-05-05 06:31] LABS: Hematocrit 33 % (42-52); Hemoglobin 12.4 g/dl (14.0-18.0); Mean Corpuscular HGB Conc 38 g/dl (31-36); Mean Corpuscular Hemoglobin 33 pg (27-31); Mean Corpuscular Volume 88 fL (80-94); Mean Platelet Volume 7 um3 (7.4-10.4); Red Blood Count 3.73 10^6/ul (4.0-5.4); Red Cell Distribution Width 15 % (10.5-15); White Blood Count 6.7 10^3/ul (3.5-10.8)
[2017-05-05 06:40] LABS: Comments Flag Yes
[2017-05-05 06:55] LABS: BUN/Creatinine Ratio 17.1 (8-20); Calcium 8.9 mg/dL (8.6-10.3); EGFR Non-African American 38.9 (>60); HDL Cholesterol 40.8 mg/dL; Potassium 3.8 mmol/L (3.5-5.0)
[2017-05-05] MEDS: Mometasone/Formoter 200/5 MDI INH SCH ×2 (07:33→20:38)
[2017-05-05] MEDS: Clopidogrel TAB* 75 MG PO SCH (08:41)
[2017-05-05] MEDS: Aspirin EC Low Dose* 81 MG TAB.EC PO SCH (08:41)
--- NOTE | 2017-05-05 11:40 | ECHO ---
Patient: ALOK KHALIL [facility] Rec#: [id number] : 1935 Date: 05/05/2017 Age: 81y Height: 175.26 cm / 69.0 in Weight: 74.84 kg / 164.9 lbs Sex: M BSA: 1.9 Room#: 447 Admit Date#: 05/04/2017 Type: Inpatient Referring: Laurita Go MD Reading: Kaitlin You MD Four Slide Machine Operator: Chantel Bowers,RDCS,RDMS CC: Marito Gillespie MD Transthoracic Echocardiogram Indication: CVA BP: 141/60 HR: 61 Rhythm: NSR Findings History: PFO (Echo 2014), COPD, smoker, HLD, prostate cancer Technical Comments: The study quality is good. Left Ventricle: The left ventricular chamber size is normal. Mild concentric left ventricular hypertrophy is observed. Global left ventricular wall motion and contractility are within normal limits. The estimated ejection fraction is 60-65%. Abnormal left ventricular diastolic filling is observed, consistent with impaired relaxation. Left Atrium: The left atrium is slightly dilated. based on area measurements. Right Ventricle: The right ventricular chamber size and systolic function are within normal limits. The right ventricle wall thickness is mildly increased. Right Atrium: The right atrium is slightly dilated. Aortic Valve: The aortic valve is trileaflet. There is mild thickening of the non coronary cusp. There is no evidence of aortic regurgitation. There is no evidence of aortic stenosis. Mitral Valve: Mild mitral annular calcification present. The mitral valve leaflets are mildly thickened. There is a trace of mitral regurgitation. There is no evidence of mitral stenosis. Tricuspid Valve: The tricuspid valve leaflets are normal. There is trace to mild tricuspid regurgitation. The right ventricular systolic pressure is estimated at 33 mmHg. No pulmonary hypertension is noted. Pulmonic Valve: The pulmonic valve appears normal. There is mild pulmonic regurgitation. Pericardium: There is no significant pericardial effusion. Aorta: There is no dilatation of the ascending aorta. There is no dilatation of the aortic arch. There is mild dilatation of the aortic root. Pulmonary Artery: The main pulmonary artery is not well visualized. Venous: The inferior vena cava appears normal in size. There is a greater than 50% respiratory change in the inferior vena cava dimension. Conclusions There is mild thickening of the non coronary cusp. There is mild thickening of the non coronary cusp. Mild concentric left ventricular hypertrophy is observed. Global left ventricular wall motion and contractility are within normal limits. The estimated ejection fraction is 60-65%. Abnormal left ventricular diastolic filling is observed, consistent with impaired relaxation. The right ventricular chamber size and systolic function are within normal limits. There is mild thickening of the non coronary cusp. There is a trace of mitral regurgitation. There is trace to mild tricuspid regurgitation. The right ventricular systolic pressure is estimated at 33 mmHg. Compared with prior study of 08/30/14, LVH is new, EF stable, valve function is stable, PFO seen previously with saline bubbles not confirmed on this study with color Doppler. Measurements Name Value Normal Range RVIDd (AP) 2D 3.2 cm (0.9 - 2.6) RVDdMajor (2D) 3.3 cm (2.2 - 4.4) RAd ISD 4CH 5.4 cm (3.4 - 4.9) RA (A4C)W 4.2 cm (2.9 - 4.6) IVSd (2D) 1.3 cm (0.6 - 1) LVPWd (2D) 1.3 cm (0.6 - 1) LVIDd (2D) 4.2 cm (3.6 - 5.4) LVIDs (2D) 3.2 cm - LV FS (2D) 24 % (25 - 45) Aortic Annulus 2.1 cm (1.4 - 2.6) Ao root diameter (2D) 3.6 cm (2.1 - 3.5) Ascending Ao 3.1 cm (2.1 - 3.4) Aortic arch 3.1 cm (1.8 - 3.4) LA dimension (AP) 2D 3.8 cm (2.3 - 3.8) LAd ISD 4CH 5.6 cm (2.9 - 5.3) LA ISD 4CH W 4.3 cm (2.5 - 4.5) Name Value Normal Range LA ESV SP 4CH (A/L) 57.07 ml - LA ESV SP 2CH (A/L) 61.31 ml - LA ESV BP (A/L) 59.9 ml - LA ESV BP (A/L) index 31 ml/m2 - LA ESV SP 4CH (MOD) 50.12 ml - LA ESV SP 2CH (MOD) 56.82 ml - Name Value Normal Range MV E-wave Vmax 0.5 m/sec - MV deceleration time 362 msec - MV A-wave Vmax 0.7 m/sec - MV E:A ratio 0.7 ratio - P. vein S-wave Vmax 0.9 m/sec - P. vein D-wave Vmax 0.4 m/sec - P. vein S:D Vmax ratio 2.1 ratio - P. vein A-wave duration 132 msec - LV septal e' Vmax 0.05 m/sec - LV lateral e' Vmax 0.06 m/sec - LV E:e' septal ratio 10 ratio - LV E:e' lateral ratio 8 ratio - Name Value Normal Range AV Vmax 1.4 m/sec - AV VTI 29.6 cm - AV peak gradient 8 mmHg - AV mean gradient 3.8 mmHg - LVOT Vmax 0.9 m/sec - LVOT VTI 24.6 cm - LVOT peak gradient 3.2 mmHg - LVOT mean gradient 1.7 mmHg - ROBINSON Vmax 0.5 m/sec - Name Value Normal Range TR Vmax 2.7 m/sec - TR peak gradient 19 mmHg - RAP 3 mmHg - RVSP 33 mmHg - IVC diameter 2 cm - Name Value Normal Range PV Vmax 0.6 m/sec - PV peak gradient 1.4 mmHg -
[2017-05-05] MEDS: Atorvastatin* 10 MG TAB PO SCH ×2 (17:41→17:42)
--- NOTE | 2017-05-05 18:25 | PN ---
Subjective Date of Service: 05/05/17 Interval History: HOSPITALIST PROGRESS NOTE Patient seen and examined at bedside. He feels well today, only deficit that persists is the visual changes on the right. Family History: Unchanged from Admission Social History: Unchanged from Admission Past Medical History: Unchanged from Admission Objective Active Medications: Aspirin (Aspirin Ec Low Dose*) 81 mg PO DAILY [facility] Last Admin: 05/05/17 08:41 Dose: 81 mg Atorvastatin Calcium (Lipitor*) 10 mg PO QPM [facility] Last Admin: 05/05/17 17:41 Dose: 10 mg Clopidogrel Bisulfate (Plavix Tab*) 75 mg PO DAILY [facility] Last Admin: 05/05/17 08:41 Dose: 75 mg Heparin Sodium (Porcine) (Heparin Vial(*)) 5,000 units SUBCUT Q8HR [facility] Last Admin: 05/05/17 13:43 Dose: 5,000 units Sodium Chloride (Ns 0.9% 1000 Ml*) 1,000 mls @ 100 mls/hr IV PER RATE [facility] Last Admin: 05/05/17 13:43 Dose: 100 mls/hr Mometasone Furoate/Formoterol Fumar (Dulera 200/5 Mdi*) 2 puff INH BID [facility] PRN Reason: Protocol Last Admin: 05/05/17 07:33 Dose: 2 puff Vital Signs - 8 hr 05/05/17 05/05/17 05/05/17 11:26 11:46 15:13 Temperature 97.6 F 97.4 F Pulse Rate 53 56 Respiratory 20 16 Rate Blood Pressure 192/72 118/64 143/64 (mmHg) O2 Sat by Pulse 98 98 Oximetry Oxygen Devices in Use Now: None Appearance: Pleasant elderly male lying in bed in NAD. Eyes: No Scleral Icterus Ears/Nose/Mouth/Throat: Mucous Membranes Moist Neck: Trachea Midline Respiratory: Symmetrical Chest Expansion and Respiratory Effort, Clear to Auscultation Cardiovascular: RRR - Normal S1 and S2 Neurological: Alert and Oriented x 3, NL Muscle Strength and Tone Result Diagrams: 05/05/17 05:53 05/05/17 05:53 Assess/Plan/Problems-Billing Assessment: Mr. Perez is an 81yo M with PMH of HLD, COPD, prostate CA, vertigo, peripheral neuropathy, PFO (echo in 2014), who presented to ED with c/o right sided hemiparesis, visual changes, found to have a CVA. - Patient Problems (1) CVA (cerebral vascular accident) Comment: - MRI showed multiple small acute to subacute infarcts in the posterior left parietal and occipital lobes. 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 - D/w Neurology - his vertebral artery stenosis would explain his occipital stroke, but not parietal, so another embolic source needs to be considered. He has had not significant arrhythmias so far, but Dr. Lopez recommends further telemetry monitoring. - Also recommends double antiplatelet therapy (Aspirin/Plavix) for 90 days and higher dose statins. - As he has a PFO, will also request LE doppler. - Continue neurochecks. (2) DVT prophylaxis Comment: - SQ heparin/SCDs. (3) Full code status Status and Disposition: Change to inpatient. Family updated at bedside.
--- NOTE | 2017-05-05 20:12 | RAD ---
HISTORY: Stroke, PFO COMPARISONS: None relevant TECHNIQUE: Multiple transverse and longitudinal ultrasound images were obtained of the bilateral lower extremities from the level of the common femoral vein inferiorly through to the infrapopliteal veins using grayscale, color Doppler, and spectral Doppler imaging with and without compression and with augmentation. FINDINGS: VEINS: The venous system of the bilateral lower extremities is compressible throughout its course, with normal flow on color Doppler imaging and normal response to augmentation on spectral Doppler imaging. SOFT TISSUES: Unremarkable. OTHER FINDINGS: None. IMPRESSION: NO RIGHT LOWER EXTREMITY DEEP VEIN THROMBOSIS. NO LEFT LOWER EXTREMITY DEEP VEIN THROMBOSIS
[2017-05-06] MEDS: NS 0.9% 1000 ML* 1,000 ML IV SCH (00:06)
[2017-05-06] MEDS: Heparin VIAL(*) 5000 UNITS/ML VIAL (FIVE THOUSAND) SUBCUT SCH (06:06)
[2017-05-06] MEDS: Aspirin EC Low Dose* 81 MG TAB.EC PO SCH (08:20)
[2017-05-06] MEDS: Clopidogrel TAB* 75 MG PO SCH (08:20)
[2017-05-06] MEDS: Mometasone/Formoter 200/5 MDI INH SCH (08:49)
[2017-05-06] MEDS ORDERED: Cyanocobalamin TAB* 500 MCG PO SCH (09:00)
--- NOTE | 2017-05-06 09:12 | PN ---
PROGRESS NOTE: DATE OF FOLLOWUP: 05/05/17 HISTORY: No acute overnight events. Since the patient was last seen, he thinks that his vision has improved as has his right hand coordination. He has undergone his brain MRI as well as echocardiogra m. His is at the bedside during my evaluation today. HOSPITAL MEDICATIONS: 1. Aspirin 81 mg daily. 2. Atorvastatin 10 mg daily. 3. Plavix 75 mg daily. 4. Heparin 5000 units q.8 hours. 5. Mometasone/formoterol 2 puffs b.i.d. 6. Normal saline at 100 ml/hour. PHYSICAL EXAMINATION: Vital Signs: Temperature 97.4, blood pressure 143/64, heart rate 56, oxygen s aturation 98% on room air. On general examination, the patient is in no acute distress, lying in his hospital bed. His heart is in regular rate and rhythm. Telemetry has shown no signs of atrial fibr illation. The lungs are clear. On neurologic examination, he is mildly forgetful. His speech is david ar without dysarthria or aphasia. His versions are full without nystagmus. His quiñones are full to c onfrontation and there is no clear partial field defect as was evident yesterday on exam. Facial sen sation and musculature is full and symmetric today. Strength is full in his upper and lower extremiti es and there is no appreciable pronator drift. His fine finger movements seem to be equal bilaterall y today. Finger to nose is without ataxia. DATA: Fasting lipid profile shows triglycerides of 82, total cholesterol of 133, LDL 76, HDL 40.8. Hemoglobin A1c 4.6. His brain MRI showed multiple small embolic appearing infarctions in the left occipital lobe as well as the left parietal lobe. His transthoracic echocardiogram showed an ejection fraction of 60 to 65% with mild concentric LVH. The left atrium was slightly dilated. Bubble study was not performed as he was previously demonstrated to have a patent foramen ovale. IMPRESSION: Ronnell Perez is an 81-year-old man who came in with partial right visual field defect a s well as right sided ataxia, which was potentially sensory ataxia and has been found to have embolic appearing infarctions in 2 vascular territories on the left. This raises concern for cardioembolic phenomenon. There has been no evidence of atrial fibrillation on telemetry, but I discussed with the patient monitoring for another 24 hours or so can potentially help us to identify whether he has par oxysmal atrial fibrillation. He was in agreement with staying overnight tonight. If this is negativ e, then I think he should have a cardiology outpatient evaluation for consideration of placement of a loop recorder. For now, he should remain on dual antiplatelet therapy, given the high grade stenosi s versus occlusion of the left vertebral artery. His statin has been increased to 40 mg given his sl ightly above goal LDL. In addition, given the presence of the PFO, we will check lower extremity ult rasound. If he remains stable overnight and all testing is negative, then he could be discharged lynne e tomorrow with the outpatient cardiology referral. [id number]/[facility] #: [id number]
[2017-05-06 09:26] VITALS: BP 138/65
--- NOTE | 2017-05-08 06:18 | DS ---
CC: Dr. Gillespie; Dr. Lopez; Dr. Adamson DISCHARGE SUMMARY: DATE OF ADMISSION: 05/04/17 DATE OF DISCHARGE: 05/06/17 PRIMARY CARE PROVIDER: Dr. Gillespie. INFANTRYMAN NEUROLOGIST: Dr. Lopez. DISCHARGE DIAGNOSES: 1. Left parietal/occipital cerebrovascular accident. 2. Borderline vitamin B12 level. SECONDARY DIAGNOSES: 1. Hyperlipidemia. 2. Chronic obstructive pulmonary disease . 3. History of prostate cancer, status post radiation. 4. Vertigo. 5. Peripheral neuropathy. 6. History of patent foramen ovale. MEDICATION LIST: 1. Symbicort 160/4.5 one to two puffs inhaled b.i.d. as needed for shortness of breath. 2. Aspirin 81 mg p.o. daily. New medications: 1. Cyanocobalamin 1000 mcg p.o. daily. 2. Clopidogrel 75 mg p.o. daily. 3. Atorvastatin 40 mg p.o. at bedtime. HOSPITAL COURSE: Mr. Perez is an 81-year-old male with past medical history as stated above that pres ented to the emergency room with complaints of right-sided weakness, slurred speech, and visual olson es. For more details about his presentation, I refer you to his history and physical. The patient w as admitted under the impression of probable CVA for further workup. Initial CT of the brain showed no acute intracranial pathology. CTA of the head and neck showed approximately 30% left ICA stenosis . Diffuse hypoenhancement with multifocal narrowing of the left vertebral artery with atheromatous p laque of the proximal left subclavian artery. MRI of the brain showed multiple small xxnso-ok-yulkhe te infarct in the posterior left parietal and occipital lobes. The patient was seen in consultation by Neurology (Dr. Lopez) and her impression was the patient is a n 81-year-old male with history of hyperlipidemia, who presented with probable partial right visual f ield defect as well as some mild right hemiparesis, which he woke up with this morning. Given the la st known normal, he was not a candidate for tPA. Her suspicion was that he had a small posterior cir culation stroke and her recommendation was to add Plavix to his aspirin for at least 90 days. The pa tient's hemoglobin A1c was 4.6. His LDL was 76. A transthoracic echocardiogram was performed and it showed an ejection fraction of 60% to 65% with normal left ventricular wall motion. A bubble study was not performed as PFO had already been seen on a prior echo from 2014. He was reevaluated by Dr. Lopez and her impression was that the findings on his MRI including infarct ions in 2 vascular territories in the left raised a concern for a cardioembolic phenomenon. While on telemetry, he had no significant arrhythmias and her recommendation was for cardiology outpatient ev aluation for consideration of placement of loop recorder. I did call the cardiology office, but I wa s told that the referral needs to come from his primary care provider to have an evaluation with the plating inspector as outpatient. Dr. Lopez also recommended dual- antiplatelet therapy given his high-gra de stenosis versus occlusion of the left vertebral artery. His atorvastatin was increased to 40 mg a s his LDL is still slightly elevated. As the patient has history of PFO, she also recommended a lowe r extremity Doppler that was negative for DVT. The patient still has some visual field loss on the right and he was advised not to drive until he noe s a visual field done as outpatient with Dr. Adamson. The patient is medically stable to be discharged home today to follow up with Dr. Gillespie as outlinda t. He will also need to see Dr. Lopez in a month. PHYSICAL EXAMINATION: Vital Signs: Temperature 97.6, heart rate is 62, respiratory rate is 18, oxyg en saturation is 98% on room air, blood pressure is 138/65. General: The patient is a pleasant elde rly male sitting up in bed, in no acute distress. CVS: Normal S1, S2. Regular rate and rhythm. Ch est: Breath sounds present bilaterally with no added sounds. Abdomen is soft, bowel sounds present. Extremities: No edema. Neuro: He is alert, oriented x3, able to move all 4 extremities with no d eficits. He still has some right visual field loss but this appears to be improved from admission. DIET: Heart-healthy diet. ACTIVITY: As tolerated. See driving limitations as described above. DISPOSITION: To home. STATUS WHILE IN THE HOSPITAL: Inpatient. Please keep in mind this is a summarized version of this patient's hospital stay. If you need more in formation, please feel free to call me at [phone] or please obtain full medical records. TIME SPENT: Approximately 50 minutes was spent to complete this discharge. [id number]/[facility] #: [id number]
== END 2017-05-06 12:18 | disposition home or self-care (01) | DRG 65 ==
LOC: ED 10:12 → MEDTELE 15:15 → OBSVTOIN 05-05 18:22
PROVIDERS: ADMIT Internal Medicine; ATTEND Internal Medicine
DX: I63.9 Cerebral infarction, unspecified (principal); G81.93 Hemiplegia, unspecified affecting right nondominant side; G62.9 Polyneuropathy, unspecified; Q21.1 Atrial septal defect; J44.9 Chronic obstructive pulmonary disease, unspecified; E78.5 Hyperlipidemia, unspecified; M17.12 Unilateral primary osteoarthritis, left knee; H26.9 Unspecified cataract; H54.7 Unspecified visual loss; R29.703 NIHSS score 3; R27.0 Ataxia, unspecified; R29.810 Facial weakness; J30.2 Other seasonal allergic rhinitis; R47.81 Slurred speech; I65.22 Occlusion and stenosis of left carotid artery; I65.02 Occlusion and stenosis of left vertebral artery; I70.8 Atherosclerosis of other arteries; Z87.891 Personal history of nicotine dependence; Z85.46 Personal history of malignant neoplasm of prostate; Z85.820 Personal history of malignant melanoma of skin; Z92.3 Personal history of irradiation; Z82.49 Family history of ischemic heart disease and other diseases of the circulatory system; Z72.89 Other problems related to lifestyle; Z79.82 Long term (current) use of aspirin; Z79.02 Long term (current) use of antithrombotics/antiplatelets
CPT/HCPCS: 36415; 70450; 70496; 70498; 70551; 71010; 80048; 80053; 80061; 81003; 82140; 82550; 82553; 82607; 83036; 83605; 83690; 83735; 83880; 84443; 84484; 85025; 85610; 85730; 86140; 93005; 93306; 93970; 94640; A9270-GY; G0378; G8978-GP-CI; G8979-GP-CI; G8980-GP-CI; G8987-GO-CH; G8988-GO-CI; G8989-GO-CH; G8990-GO-CI; G8991-GO-CI; G8992-GO-CI; J1644; Q9967

== ENCOUNTER 2017-11-10 14:54 | Emergency (ER) | payer MEDICARE ==
[2017-11-10 15:06] VITALS: BP 124/76
--- NOTE | 2017-11-10 18:11 | UC ---
Torsten Middleton Jade, scribed for Dov Bundy MD on 11/10/17 at 1522 . Skin Complaint HPI - HPI Summary HPI Summary: Pt is an 82 y/o male who presents to [facility] c/o skin complaint. He states that he suddenly noticed a bruise-like rash on the dorsal side of his right forearm today. He denies any wrist or arm pain, or changed in ROM of his arm. Pt denies lifting anything heavy or blood draws recently. Pt does not know what caused this to appear, but does not think that he bumped into anything today. Pt is on 20 mg Lipitor and baby ASA daily. PMHx CVA that affected sensation and motion of his right hand 6 months ago. - History of Current Complaint Chief Complaint: UCRash Time Seen by Provider: 11/10/17 15:16 Stated Complaint: RASH Hx Obtained From: Patient Onset/Duration: Gradual Onset, Still Present Timing: Constant Current Severity: None Pain Intensity: 0 Pain Scale Used: 0-10 Numeric Location: Other - Right forearm Aggravating Factor(s): Nothing Alleviating Factor(s): Nothing Associated Signs & Symptoms: Positive: Bruising. Negative: Numbness, Weakness - Allergy/Home Medications Allergies/Adverse Reactions: Allergies Allergy/AdvReac Type Severity Reaction Status Date / Time No Known Allergies Allergy Verified 11/10/17 15:09 Review of Systems Constitutional: Negative Skin: Bruising - Right forearm Motor: Negative - Decreased ROM Musculoskeletal: Negative - Pain All Other Systems Reviewed And Are Negative: Yes PMH/Surg Hx/FS Hx/Imm Hx Cardiovascular History: Other - HLD Other Cardiovascular History: . Respiratory History: COPD Neurological History: CVA, Other - Vertigo Other Neurological History: . - Surgical History Surgical History: Yes Surgery Procedure, Year, and Place: T & A; lower back injections 1978 in [place] , 1998 [place] PROSTATE SEED IMPLANT, APPENDECTOMY, - Family History Known Family History: Positive: Cardiac Disease - CAD, Other - Cancer (mother) Negative: Renal Disease, Respiratory Disease - Social History Occupation: Retired Lives: With Family Alcohol Use: Daily Alcohol Amount: beer Substance Use Type: None Smoking Status (MU): Former Smoker Amount Used/How Often: < 1 PPDX 25 YRS Have You Smoked in the Last Year: No When Did the Patient Quit Smoking/Using Tobacco: quit 1978 - Immunization History Most Recent Influenza Vaccination: march 2017 Most Recent Tetanus Shot: UTD Most Recent Pneumonia Vaccination: 2004 Physical Exam - Summary Physical Exam Summary: General: well-appearing, no pain distress Skin: warm, color reflects adequate perfusion, dry. 10 cm by 5 cm intradermal blood blister on dorsum of right forearm. Head: normal Eyes: EOMI, MOOKIE ENT: normal Neck: supple, nontender Respiratory: CTA, breath sounds present Cardiovascular: RRR Abdomen: soft, nontender Bowel: present Musculoskeletal: normal, strength/ROM intact Neurological: sensory/motor intact, A&O x3 Psychological: affect/mood appropriate Triage Information Reviewed: Yes Vital Signs: Initial Vital Signs Temp 98.1 F 11/10/17 15:02 Pulse 70 11/10/17 15:02 Resp 18 11/10/17 15:02 BP 124/76 11/10/17 15:02 Pulse Ox 99 11/10/17 15:02 Vital Signs Reviewed: Yes Course/Dx - Course Course Of Treatment: LESION APPEARS TO BE A TRAUMATIC BLOOD BLISTER. NOT ON A BLOOD THINNER. DISCUSSED EXPECTION OF HEALING. F/U PMD. WILL GET LABS TO ENSURE NORMAL COAGULATION. F/U PMD. - Diagnoses Provider Diagnoses: RIGHT ARM [facility] Discharge - Sign-Out/Discharge Documenting (check all that apply): Discharge/Admit/Transfer - Discharge - Discharge Plan Condition: Stable Disposition: HOME Patient Education Materials: [facility] (ED) Referrals: Marito Gillespie MD [Primary Care Provider] - Additional Instructions: FOLLOW UP WITH YOUR DOCTOR. GET RECHECKED FOR ANY WORSENING OF YOUR CONDITION OR QUESTIONS OR CONCERNS. - Billing Disposition and Condition Condition: STABLE Disposition: Home The documentation as recorded by the Torsten roman Jade accurately reflects the service I personally performed and the decisions made by me, Dov Bundy MD.
[2017-11-10 18:44] LABS: EGFR Non-African American 35.6 (>60)
[2017-11-10 18:49] LABS: ABS Basophils 0.1 10^3/ul (0-0.2); ABS Eosinophils 0.7 10^3/ul (0-0.6); ABS Lymphocytes 1.1 10^3/ul (1.0-4.8); ABS Monocytes 0.6 10^3/ul (0-0.8); ABS Neutrophils 4.5 10^3/ul (1.5-7.7); ABS Nucleated RBC 0 10^3/ul; Eosinophil % 9.7 % (0-6); Hematocrit 33 % (42-52); Hemoglobin 12.6 g/dl (14.0-18.0); Mean Corpuscular HGB Conc 38 g/dl (31-36); Mean Corpuscular Hemoglobin 34 pg (27-31); Mean Corpuscular Volume 89 fL (80-94); Mean Platelet Volume 7.1 um3 (7.4-10.4); Nucleated Red Blood Cells % 0; Platelet Count 175 10^3/ul (150-450); Red Blood Count 3.74 10^6/ul (4.00-5.40); Red Cell Distribution Width 16 % (10.5-15); White Blood Count 6.9 10^3/ul (3.5-10.8)
[2017-11-10 18:57] LABS: INR 0.9 (0.77-1.02)
--- NOTE | 2017-11-11 12:01 | UC ---
- Progress Note Progress Note: CBC, INR, CMP reviewed no acute labs ljj 11/11/2017 Discharge - Sign-Out/Discharge Documenting (check all that apply): Post-Discharge Follow Up - Discharge Plan Condition: Stable Disposition: HOME Patient Education Materials: [facility] (ED) Referrals: Marito Gillespie MD [Primary Care Provider] - Additional Instructions: FOLLOW UP WITH YOUR DOCTOR. GET RECHECKED FOR ANY WORSENING OF YOUR CONDITION OR QUESTIONS OR CONCERNS. - Billing Disposition and Condition Condition: STABLE Disposition: Home
== END 2017-11-10 15:40 | disposition home or self-care (01) ==
LOC: UCEAST 14:54
DX: D69.2 Other nonthrombocytopenic purpura (principal); E78.5 Hyperlipidemia, unspecified; Z86.73 Personal history of transient ischemic attack (TIA), and cerebral infarction without residual deficits; Z79.82 Long term (current) use of aspirin; J44.9 Chronic obstructive pulmonary disease, unspecified; Z87.891 Personal history of nicotine dependence
CPT/HCPCS: 36415; 80053; 85025; 85610; 99211; G0463

== ENCOUNTER 2019-04-05 16:20 | Emergency (ER) | payer MEDICARE ==
[2019-04-05 16:54] VITALS: BP 173/92
[2019-04-05] MEDS ORDERED: Ibuprofen TAB* 600 MG PO ONE (18:23)
--- NOTE | 2019-04-05 18:27 | UC ---
Neck Pain HPI - HPI Summary HPI Summary: 83-year-old male comes in with a chief complaint of left-sided neck pain. Yesterday he started with right shoulder pain. Movement didn't make the pain worse. Patient reports that gradually the pain moved to the right side of his posterior neck. The shoulder pain is gone now. Since then the pain is moved to the left posterior neck is no longer the right posterior neck. Pain is worse with range of motion twisting turning of the neck. It's improved if he compresses the area. He does not have any anterior neck pain. No weakness or numbness no difficulty with vision or speech. The pain does not radiate into the head or chest. - History of Current Complaint Chief Complaint: UCBackPain Stated Complaint: NECK AND SHOULDER PAIN Time Seen by Provider: 04/05/19 18:02 Pain Intensity: 8 - Allergies/Home Medications Allergies/Adverse Reactions: Allergies Allergy/AdvReac Type Severity Reaction Status Date / Time No Known Allergies Allergy Verified 04/05/19 16:54 Home Medications: Home Medications Atorvastatin* [Lipitor 40 MG*] 20 mg PO 1700 04/05/19 [History Confirmed ] PMH/Surg Hx/FS Hx/Imm Hx Previously Healthy: Yes Endocrine History: Dyslipidemia Neurological History: TIA, CVA - Surgical History Surgical History: Yes Surgery Procedure, Year, and Place: T & A; lower back injections 1978 in [place] , 1998 [facility] PROSTATE SEED IMPLANT, APPENDECTOMY, - Family History Known Family History: Positive: None, Cardiac Disease - CAD, Other - Cancer ( mother) Negative: Renal Disease, Respiratory Disease - Social History Alcohol Use: Daily Alcohol Amount: beer Substance Use Type: None Smoking Status (MU): Former Smoker Amount Used/How Often: < 1 PPDX 25 YRS Have You Smoked in the Last Year: No When Did the Patient Quit Smoking/Using Tobacco: quit 1978 - Immunization History Most Recent Influenza Vaccination: march 2017 Most Recent Tetanus Shot: UTD Most Recent Pneumonia Vaccination: 2004 Review of Systems All Other Systems Reviewed And Are Negative: Yes Constitutional: Positive: Negative Skin: Positive: Negative Eyes: Positive: Negative ENT: Positive: Negative Respiratory: Positive: Negative Cardiovascular: Positive: Negative Gastrointestinal: Positive: Negative Motor: Positive: Negative Neurovascular: Positive: Negative Musculoskeletal: Positive: Other: - see hpi Neurological: Positive: Negative Psychological: Positive: Negative Is Patient Immunocompromised?: No Physical Exam Triage Information Reviewed: Yes Appearance: Well-Appearing, Well-Nourished, Pain Distress - Mild with range of motion of the neck. Vital Signs: Initial Vital Signs Temp 99.8 F 04/05/19 16:48 Pulse 72 04/05/19 16:48 Resp 16 04/05/19 16:48 BP 173/92 04/05/19 16:48 Pulse Ox 99 04/05/19 16:48 Vital Signs Reviewed: Yes Eye Exam: Normal Eyes: Positive: Conjunctiva Clear Neck: Positive: Other: - The area of the pain is in the lateral aspect of the posterior neck on the left side. There is no pain in the anterior aspect over the carotids. No bruits appreciated on exam. When I press on the area patient reports that it relieves the pain. I do not feel any pulsatile mass. Respiratory: Positive: Lungs clear, Normal breath sounds, No respiratory distress Cardiovascular: Positive: RRR, No Murmur Musculoskeletal: Positive: Strength Intact, Other: - Arms have full range of motion full-strength. Neurological: Positive: Alert, Muscle Tone Normal, Other: - No focal neurologic deficit. Psychological: Positive: Age Appropriate Behavior Skin Exam: Normal Neck Pain Course/Dx - Course Course Of Treatment: Pain is in the left posterior aspect of the neck it is not over the carotid arteries. There is no radiation of pain into the head or to the chest. Patient reports pain started in the right shoulder with the right neck and into the left neck making an aneurysm highly unlikely although not completely impossible. Discussed all this with the patient. At this time the plan is to treat with ibuprofen 600 mg every 6 hours as needed and also use lidocaine patch and cold compresses. Follow-up with his primary care doctor. Discussed with him and his that if anything got worse the pain spread got worse he had any weakness or numbness or difficulty vision or speech she should go directly to the emergency department. - Differential Dx/Diagnosis Provider Diagnosis: Neck pain Discharge ED - Sign-Out/Discharge Documenting (check all that apply): Patient Departure All imaging exams completed and their final reports reviewed: No Studies - Discharge Plan Condition: Stable Disposition: HOME Patient Education Materials: Acute Neck Pain (ED) Referrals: Marito Gillespie MD [Primary Care Provider] - Additional Instructions: FOLLOW UP WITH YOUR DOCTOR. TRY AN OVER THE COUNTER LIDOCAINE PATCH IF HELPFUL. TAKE IBUPROFEN 600MG EVERY 6 HOURS NEEDED. GET REEVALUATED SOONER IF NOT IMPROVED OR GO TO THE EMERGENCY DEPARTMENT IF WORSE; WORSE PAIN, PAIN OVER THE CAROTID ARTERY OR IN THE HEAD OR CHEST, WEAKNESS, NUMBNESS, DIFFICULTY WITH VISION OR SPEECH OR ANY QUESTIONS OR CONCERNS. - Billing Disposition and Condition Condition: STABLE Disposition: Home
== END 2019-04-05 18:37 | disposition home or self-care (01) ==
LOC: UCEAST 16:20
DX: M54.2 Cervicalgia (principal); M25.511 Pain in right shoulder; E78.5 Hyperlipidemia, unspecified; Z79.899 Other long term (current) drug therapy; Z86.73 Personal history of transient ischemic attack (TIA), and cerebral infarction without residual deficits; Z87.891 Personal history of nicotine dependence
CPT/HCPCS: 99212; A9270-GY; G0463

== ENCOUNTER 2023-03-13 23:46 | Observation (INO) ==
[2023-03-13] MEDS ORDERED: Lactated Ringers 1000 ml BAG 1,000 ML IV ONE (23:56)
[2023-03-14 00:19] LABS: ABS Lymphocytes 0.9 10^3/uL (1.0-4.8); ABS Monocytes 0.8 10^3/uL (0.0-1.1); ABS Neutrophils 5.7 10^3/uL (1.5-7.6); Eosinophil % 0.1 %; Hematocrit 33.6 % (38-53); Hemoglobin 12.3 g/dL (13.2-16.3); Lymphocyte % 11.7 %; Mean Corpuscular Hemoglobin 32.6 pg (27-33); Mean Corpuscular Hgb Conc 36.5 g/dL (31-36); Mean Corpuscular Volume 89.2 fL (80-97); Mean Platelet Volume 6.8 fL (7.5-11.2); Platelet Count 110 10^3/uL (150-450); Red Blood Count 3.77 10^6/uL (4.06-5.63); Red Cell Distribution Width 15.2 % (12-17); White Blood Count 7.4 10^3/uL (3.6-10.2)
[2023-03-14 00:39] LABS: Albumin 3.9 g/dL (3.2-5.2); Albumin/Globulin Ratio 1.3 (1-3); Calcium 8.7 mg/dL (8.6-10.3); Creatinine, Serum 2.31 mg/dL (0.67-1.17); Globulin 2.9 g/dL (2-4); Potassium 4.1 mmol/L (3.5-5.0); Total Protein 6.8 g/dL (6.4-8.9); eGFR CKD-EPI 26.7 (>60)
[2023-03-14 01:04] LABS: Urine Appearance Cloudy; Urine Bilirubin Negative (Negative); Urine Blood 2+ (Negative); Urine Color Yellow; Urine Glucose Negative (Negative); Urine Ketones Negative (Negative); Urine Nitrite Positive (Negative); Urine Protein 2+(100 mg/dL) (Negative); Urine Specific Gravity 1.009 (1.002-1.030); Urine Urobilinogen Negative (Negative)
[2023-03-14 01:07] LABS: Urine Bacteria 1+ (Absent); Urine Red Blood Cell 3+(>10/hpf) (Absent); Urine White Blood Cell 3+(>20/hpf) (Absent)
[2023-03-14] MEDS ORDERED: cefTRIAXone 1 gm/50 mL D5W 1 GM/50 ML BAG IV ONE (01:10)
[2023-03-14] MEDS ORDERED: Ondansetron 4 mg VIAL 2 MG/ML 2 ml VIAL IV PRN (02:05)
[2023-03-14] MEDS: NS 0.9% 1000 ml BAG 1,000 ML IV SCH ×2 (03:21→13:46)
[2023-03-14] MEDS: Enoxaparin 30 MG/0.3 ML SYR SUBCUT SCH (05:51)
[2023-03-14 07:09] LABS: Calcium 8.3 mg/dL (8.6-10.3); Creatinine, Serum 2.25 mg/dL (0.67-1.17); Magnesium 1.8 mg/dL (1.9-2.7); Potassium 4.1 mmol/L (3.5-5.0); eGFR CKD-EPI 27.5 (>60)
[2023-03-14] MEDS ORDERED: Magnesium Sulfate 2 gm BAG 2 GM/50 ML BAG IVPB ONE (07:27)
[2023-03-14 07:39] LABS: Hematocrit 31.9 % (38-53); Hemoglobin 11.5 g/dL (13.2-16.3); Mean Corpuscular Hemoglobin 32.4 pg (27-33); Mean Corpuscular Hgb Conc 36.1 g/dL (31-36); Mean Corpuscular Volume 89.6 fL (80-97); Red Blood Count 3.56 10^6/uL (4.06-5.63); Red Cell Distribution Width 15.1 % (12-17); White Blood Count 6.6 10^3/uL (3.6-10.2)
[2023-03-14 08:19] LABS: ABS Lymphocytes 1.1 10^3/uL (1.0-4.8); ABS Monocytes 0.6 10^3/uL (0.0-1.1); ABS Neutrophils 4.7 10^3/uL (1.5-7.6); ABS Nucleated RBC 0.01 10^3/ul; Eosinophil % 0.3 %; Lymphocyte % 17.3 %; Nucleated Red Blood Cells % 0.2 %/100WBC (0.0-0.8); Platelet Count 91 10^3/uL (150-450)
[2023-03-14] MEDS: Azithromycin 500 mg/250 ml NS 500 MG/250 ML BAG IVPB SCH (14:12)
[2023-03-14 16:16] LABS: RBC Parasite Smear No Parasites Seen (No Parasite)
[2023-03-14] MEDS: Lactated Ringers 1000 ml BAG 1,000 ML IV SCH (18:22)
[2023-03-14] MEDS: cefTRIAXone 2 gm/50 mL D5W 2 GM/50 ML BAG IV SCH (20:31)
[2023-03-15] MEDS ORDERED: cefTRIAXone 1 gm/50 mL D5W 1 GM/50 ML BAG IV SCH (01:00)
[2023-03-15] MEDS: Lactated Ringers 1000 ml BAG 1,000 ML IV SCH ×3 (04:20→14:25)
[2023-03-15] MEDS: Enoxaparin 30 MG/0.3 ML SYR SUBCUT SCH (05:26)
[2023-03-15 06:05] LABS: Albumin 3.2 g/dL (3.2-5.2); Albumin/Globulin Ratio 1.2 (1-3); Calcium 8.3 mg/dL (8.6-10.3); Creatinine, Serum 2.23 mg/dL (0.67-1.17); Globulin 2.6 g/dL (2-4); Potassium 3.9 mmol/L (3.5-5.0); Total Bilirubin 0.4 mg/dL (0.2-1.0); Total Protein 5.8 g/dL (6.4-8.9); eGFR CKD-EPI 27.8 (>60)
[2023-03-15 06:16] LABS: ABS Eosinophils 0.1 10^3/uL (0.0-0.5); ABS Lymphocytes 1.5 10^3/uL (1.0-4.8); ABS Monocytes 0.6 10^3/uL (0.0-1.1); ABS Neutrophils 3.9 10^3/uL (1.5-7.6); Eosinophil % 1.5 %; Hematocrit 28.3 % (38-53); Hemoglobin 10.5 g/dL (13.2-16.3); Lymphocyte % 24.7 %; Mean Corpuscular Hemoglobin 32.8 pg (27-33); Mean Corpuscular Hgb Conc 36.9 g/dL (31-36); Mean Platelet Volume 7.1 fL (7.5-11.2); Nucleated Red Blood Cells % 0.1 %/100WBC (0.0-0.8); Platelet Count 87 10^3/uL (150-450); Red Blood Count 3.19 10^6/uL (4.06-5.63); Red Cell Distribution Width 15.2 % (12-17); White Blood Count 6.2 10^3/uL (3.6-10.2)
[2023-03-15] MEDS: Azithromycin 500 mg/250 ml NS 500 MG/250 ML BAG IVPB SCH (14:25)
[2023-03-15] MEDS: cefTRIAXone 2 gm/50 mL D5W 2 GM/50 ML BAG IV SCH (21:06)
[2023-03-16] MEDS: Enoxaparin 30 MG/0.3 ML SYR SUBCUT SCH (04:51)
[2023-03-16 05:34] LABS: Calcium 8.4 mg/dL (8.6-10.3); Creatinine, Serum 1.98 mg/dL (0.67-1.17); Potassium 3.8 mmol/L (3.5-5.0); eGFR CKD-EPI 32.1 (>60)
[2023-03-16 06:02] LABS: ABS Eosinophils 0.3 10^3/uL (0.0-0.5); ABS Lymphocytes 1.5 10^3/uL (1.0-4.8); ABS Monocytes 0.7 10^3/uL (0.0-1.1); ABS Neutrophils 3.5 10^3/uL (1.5-7.6); Eosinophil % 4.3 %; Hematocrit 27.9 % (38-53); Hemoglobin 10.4 g/dL (13.2-16.3); Lymphocyte % 25.8 %; Mean Corpuscular Hemoglobin 32.6 pg (27-33); Mean Corpuscular Hgb Conc 37.4 g/dL (31-36); Mean Corpuscular Volume 87.1 fL (80-97); Mean Platelet Volume 7.2 fL (7.5-11.2); Nucleated Red Blood Cells % 0.1 %/100WBC (0.0-0.8); Platelet Count 100 10^3/uL (150-450); Red Cell Distribution Width 15.6 % (12-17)
[2023-03-16 10:01] VITALS: BP 147/73
[2023-03-16] MEDS ORDERED: Amoxicillin/Clavul 500/125 TAB (Augmentin 500 mg tab) PO ONE (12:58)
[2023-03-16 23:14] LABS: Anaplasma phagocytophilum Negative (Negative); B. miyamotoi PCR, B Negative (Negative); Babesia divergens/MO-1 Negative (Negative); Babesia ducani Negative (Negative); Ehrlichia chaffeensis Negative (Negative); Ehrlichia ewingii/canis Negative (Negative); Ehrlichia muris eauclairensis Negative (Negative)
== END 2023-03-16 13:55 | disposition home or self-care (01) ==
LOC: ED 23:46 → INTOOBSV 03-14 02:49 → SUATTDRO 03-14 02:49 → MED 03-14 02:49 → EDHOLD 03-14 02:49 → MED 03-14 03:46
PROVIDERS: ADMIT Internal Medicine; ATTEND Family Medicine